=== PATIENT | female | born 1950 | race Caucasian/White ===

== ENCOUNTER → 2023-09-23 10:58 | Outpatient (REF) | payer OTHER, SELFPAY | LOC: WDC 10:58 | PROVIDERS: ATTENDING PHYSICIAN Obstetrics & Gynecology Gynecology; FAMILY PHYSICIAN Internal Medicine | DX: Z12.31 Encounter for screening mammogram for malignant neoplasm of breast (principal); Z85.3 Personal history of malignant neoplasm of breast; Z90.12 Acquired absence of left breast and nipple | CPT/HCPCS: 77063; 77067 ==

== ENCOUNTER → 2024-03-29 09:52 | Outpatient (REF) | payer OTHER, SELFPAY | LOC: RAD 09:52 | PROVIDERS: ATTENDING PHYSICIAN Family Medicine | DX: E55.9 Vitamin D deficiency, unspecified (principal); Z78.0 Asymptomatic menopausal state | CPT/HCPCS: 77080 ==

== ENCOUNTER → 2024-09-25 12:07 | Outpatient (REF) | payer OTHER, SELFPAY | LOC: WDC 12:07 | PROVIDERS: ATTENDING PHYSICIAN Obstetrics & Gynecology Gynecology; FAMILY PHYSICIAN Family Medicine | DX: Z12.31 Encounter for screening mammogram for malignant neoplasm of breast (principal) | CPT/HCPCS: 77063; 77067 ==

== ENCOUNTER → 2025-03-28 09:08 | Outpatient (REF) | payer OTHER, SELFPAY | LOC: RAD 09:08 | PROVIDERS: ATTENDING PHYSICIAN Specialist; FAMILY PHYSICIAN Family Medicine | DX: Z96.652 Presence of left artificial knee joint (principal); Z96.651 Presence of right artificial knee joint | CPT/HCPCS: 78315; A9503 ==

== ENCOUNTER 2025-05-13 10:45 | Inpatient (IN) | payer OTHER, SELFPAY ==
[2025-04-23 11:43] LABS: Hematocrit 35.3 % (37.0-47.0); Hemoglobin 11.8 g/dL (12.0-16.0); Mean Corp Hgb Conc. 33.4 g/dL (33.0-37.0); Mean Corpuscular Volume 93.9 fL (81.0-99.0); Platelet Count 234 10^3/uL (130-400); Red Cell Dist. Width 13.2 % (11.5-14.5)
[2025-04-23 12:14] LABS: ALT (SGPT) 22 U/L (0-35); AST (SGOT) 29 U/L (14-36); Albumin 4.3 g/dl (3.5-5.0); Alkaline Phosphatase 64 U/L (38-126); Blood Urea Nitrogen 31 mg/dl (7-17); Calcium 9.5 mg/dl (8.4-10.2); Carbon Dioxide 29 mmol/L (22-30); Chloride 103 mmol/L (98-107); Glucose 124 mg/dl (70-99); Potassium 4.2 mmol/L (3.5-5.1); Sodium 135 mmol/L (135-145); Total Protein 6.7 g/dl (6.3-8.2); eGFR 47.80
[2025-04-23 12:35] LABS: Glycohemoglobin (HgbA1c) 5.7 % (4.0-5.9)
[2025-04-23 14:09] VITALS: BMI 40.3
--- NOTE | 2025-04-29 09:21 | CM ---
Demographics: confirmed
Living situation: lives with
Support Person Post Operatively:
History of
VN: [facility], not currently on service
SNF: no
Outpatient: [facility], appointment scheduled for 05/15
Has patient purchased required equipment: walker, cane, raised toilet seat
PCP: confirmed
Pharmacy: [facility]
Post Operative Discharge Plan: Home with , plan for outpatient PT.
[2025-05-07 15:41] VITALS: BMI 40.3
[2025-05-13] VITALS (17 sets, daily range): BP systolic 120–155; BP diastolic 63–140
[2025-05-13] MEDS: CELEBREX 200 MG PO (11:29)
[2025-05-13] MEDS: TYLENOL 650 MG PO ×2 (11:29→21:00)
[2025-05-13 11:42] LABS: Glucose - Point of Care 117 mg/dl (70-99)
[2025-05-13] MEDS: NORMOSOL-R/PLASMALYTE-A 1000 IV ×2 (11:45→21:00)
[2025-05-13 14:12] LABS: Glucose - Point of Care 104 mg/dl (70-99)
--- NOTE | 2025-05-13 15:20 | W.PN.ORTHO ---
Today's Communication / Plan
-
d/c when stable
Assessment
.
Assessment:
Pain control-[place]
Plan
.
Surgery / Date: R TKA Revision Dr Sarah 05/13/25
DVT Prophylaxis: Aspirin
Activity:
Out of bed.
PT/OT
Discharge Plan: Home w/ Outpatient PT
Vital Signs and Labs
.
Vital Signs and Labs:
Lab Results
04/23/25 11:02
04/23/25 11:02
Temp Pulse Resp BP Pulse Ox
98.2 F 74 14 134/76 97
05/13/25 11:22 05/13/25 11:22 05/13/25 11:22 05/13/25 11:22 05/13/25 11:22
--- NOTE | 2025-05-13 15:26 | W.DS.TRANS ---
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
-
Discharge Instructions:
Sleep Apnea Risk Intermediate
Discharge Diagnosis/Procedures Mechanical failure of R TKA s/p Revision of R
TKA w/ Dr Sarah 05/13/25
Diet Diabetic, Carb Controlled
Additional Diets Adequate hydration, minimize opioids, and wear
TEDs stockings to prevent low blood pressure/
dizziness.
Activity As tolerated,With Walker
Driving Restrictions Not until seen by your Dr
Bathing Restrictions OK to Shower
Other Services PT
Wound Care Dressing to be removed 1 week post-surgery.
Sarita to be removed at 2 week follow-up with
surgeon's office.
Instructions:
Stand-Alone Forms: Total Hip/Knee Replacement D/C
Changes to Home Medications: Yes
Discharge Medications:
DC Medications w/original date entered in [facility]
hydroxychloroquine 200 mg tablet 200 mg PO DAILY 12/16/14
metformin 500 mg tablet 500 mg PO DAILY 12/18/19
atorvastatin 40 mg tablet 40 mg PO DAILY 04/19/25
cholecalciferol (vitamin D3) 125 mcg (5,000 unit) tablet (Vitamin D3) 125 mcg PO DAILY 04/19/25
levothyroxine 75 mcg tablet 75 mcg PO DAILY 04/19/25
lisinopril 30 mg tablet 40 mg PO DAILY 04/19/25
mupirocin 2 % topical ointment 1 applic intranasal BID #1 tube 04/23/25
cefadroxil 500 mg capsule 500 mg PO DAILY #7 caps 05/02/25
diazepam 5 mg tablet (Valium) 5 mg PO BID PRN muscle spasms/sleep #10 tabs 05/02/25
famotidine 20 mg tablet (Pepcid) 20 mg PO HS #30 tabs 05/02/25
hydrocodone 5 mg-acetaminophen 325 mg tablet 1 - 2 tab PO Q6H PRN moderate-severe pain #30 tabs 05/02/25
ondansetron HCl 4 mg tablet 4 mg PO Q6H PRN nausea and vomiting #30 tabs 05/02/25
Saccharomyces boulardii 250 mg capsule (Florastor) 250 mg PO BID #1 cap 05/13/25
aspirin 325 mg tablet 325 mg PO DAILY blood clot prevention #1 tab 05/13/25
docusate sodium 100 mg capsule (Colace) 100 mg PO BID stool softner #1 cap 05/13/25
hydralazine 10 mg tablet 30 mg (3 x 10 mg) PO BID #0 tabs 05/13/25
magnesium hydroxide 400 mg/5 mL oral suspension (Milk of Magnesia) 30 ml PO HS PRN constipation #1 mL 05/13/25
sennosides 8.6 mg tablet (Senokot) 17.2 mg (2 x 8.6 mg) PO BID laxative #2 tabs 05/13/25
Home Medication Changes
mupirocin 2 % topical ointment 1 applic intranasal BID #1 tube 04/23/25
cefadroxil 500 mg capsule 500 mg PO DAILY #7 caps 05/02/25
diazepam 5 mg tablet (Valium) 5 mg PO BID PRN muscle spasms/sleep #10 tabs 05/02/25
famotidine 20 mg tablet (Pepcid) 20 mg PO HS #30 tabs 05/02/25
hydrocodone 5 mg-acetaminophen 325 mg tablet 1 - 2 tab PO Q6H PRN moderate-severe pain #30 tabs 05/02/25
ondansetron HCl 4 mg tablet 4 mg PO Q6H PRN nausea and vomiting #30 tabs 05/02/25
Saccharomyces boulardii 250 mg capsule (Florastor) 250 mg PO BID #1 cap 05/13/25
aspirin 325 mg tablet 325 mg PO DAILY blood clot prevention #1 tab 05/13/25
docusate sodium 100 mg capsule (Colace) 100 mg PO BID stool softner #1 cap 05/13/25
hydralazine 10 mg tablet 30 mg (3 x 10 mg) PO BID #0 tabs 05/13/25
magnesium hydroxide 400 mg/5 mL oral suspension (Milk of Magnesia) 30 ml PO HS PRN constipation #1 mL 05/13/25
sennosides 8.6 mg tablet (Senokot) 17.2 mg (2 x 8.6 mg) PO BID laxative #2 tabs 05/13/25
Pending Results: No
[2025-05-13 17:02] LABS: Glucose - Point of Care 125 mg/dl (70-99)
[2025-05-13] MEDS: NORCO 5/325 1 TABLET PO (18:40)
[2025-05-13 20:22] LABS: Glucose - Point of Care 211 mg/dl (70-99)
[2025-05-13] MEDS: TYLENOL PO ×2 (21:00→22:29)
[2025-05-13] MEDS: BACTROBAN 2% OINTMENT 1 APPLIC NASAL (21:00)
[2025-05-13] MEDS: SENOKOT 17.2 MG PO (21:00)
[2025-05-13] MEDS: DECADRON 4 MG IV (21:00)
[2025-05-13] MEDS: COLACE 100 MG PO (21:00)
[2025-05-13] MEDS: ASPIRIN 325 MG PO (21:00)
[2025-05-13] MEDS: SYNTHROID PO (21:00)
--- NOTE | 2025-05-13 21:15 | PTCARENOTE ---
Patient is a 74-y/o F arrived from PACU at 20:49 post-op RTKA Revision after mechanical failure of her prior right total
knee arthroplasty. 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 Surjit Sarah, HTN, HLD, First-degree AV block. Chronic
lymphedema of bilateral lower extremities, Chronic kidney disease stage 3, [id number] diabetes, A1c 5.7, Diverticulosis with previous diverticulitis, Fatty liver disease, Irritable bowel syndrome with constipation, Migraines. Ambulatory
dysfunction and balance difficulties, Nocturnal leg cramps. Hypothyroidism, Hyperparathyroidism of renal origin, Inflammatory arthropathy, on Hydroxychloroquine. Anemia, likely of chronic disease. Left sided breast cancer, 2004, status post left
lumpectomy and subsequent left mastectomy, chemotherapy, and radiation. Morbid obesity, BMI 40.3. Pt is AOx3, pain assessed, call light in reach, care on-going
[2025-05-13] MEDS: PEPCID 20 MG PO (21:25)
[2025-05-13] MEDS: VALIUM 5 MG PO (21:25)
[2025-05-13] MEDS: LIPITOR PO (22:15)
[2025-05-13] MEDS: ANCEF 5 IV (22:25)
[2025-05-14] MEDS: TYLENOL 650 MG PO ×3 (00:20→07:43)
[2025-05-14 03:00] VITALS: BP 127/72
[2025-05-14] MEDS: SYNTHROID 75 MCG PO (05:00)
[2025-05-14] MEDS: ANCEF 5 IV (05:00)
[2025-05-14 07:03] LABS: Glucose - Point of Care 165 mg/dl (70-99)
[2025-05-14 07:19] VITALS: BMI 38.8
[2025-05-14] MEDS: SENOKOT 17.2 MG PO (07:43)
[2025-05-14] MEDS: ASPIRIN 325 MG PO (07:43)
[2025-05-14] MEDS: DECADRON 4 MG IV (07:44)
[2025-05-14] MEDS: COLACE 100 MG PO (07:44)
[2025-05-14] MEDS: BACTROBAN 2% OINTMENT 1 APPLIC NASAL (07:44)
[2025-05-14] MEDS: PLAQUENIL 200 MG PO (07:47)
[2025-05-14] MEDS: LIPITOR 40 MG PO (07:48)
[2025-05-14 08:01] VITALS: BP 141/78
[2025-05-14] MEDS: NORCO 5/325 1 TABLET PO (09:48)
--- NOTE | 2025-05-14 10:04 | CM ---
Chart reviewed and plan is to home with spouse and outpatient physical therapy that has been scheduled at [facility], starting 05/15 at [facility].
Plan; Home today with outpatient PT/OT at [facility].
--- NOTE | 2025-05-14 10:15 | W.PN.ORTHO ---
Today's Communication / Plan
-
d/c
Assessment
.
Distal Motor Intact: Yes
Dressing:
Clean, dry and intact.
Assessment:
Pain control-[place]
Chronic lymphedema-legs look good-minimal swelling-continue compression and elevation-follows w/ lymphedema clinic which is scheduled w/ PT
NIDDM-Metformin increased due to surgery and steroid-sugars well controlled-Cefadroxil OP Rx ppx due to obesity and DM
Plan
.
Surgery / Date: R TKA Revision Dr Sarah 05/13/25
DVT Prophylaxis: Aspirin
Activity:
Out of bed.
PT/OT
Discharge Plan: Home w/ Outpatient PT
Subjective
.
.:
Patient resting comfortably.
Vital Signs and Labs
.
Vital Signs and Labs:
Lab Results
04/23/25 11:02
04/23/25 11:02
Temp Pulse Resp BP Pulse Ox
98.0 F 71 17 141/78 96
05/14/25 08:01 05/14/25 08:01 05/14/25 08:01 05/14/25 08:01 05/14/25 08:01
Non-invasive Hgb result: 11.1
Physical Exam
-
HEENT: No pallor, cyanosis, or jaundice. Throat clear.
NECK: Supple. No JVD.
RESPIRATORY: Lungs clear to auscultation.
CVS: S1, S2 normal. RRR.� No murmur, rub or gallop.
ABDOMEN: Soft, non-tender. No distension. BS+/normal.
EXTREMITIES: strength equal, no calf pain with palpation
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 No focal deficits. 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
[2025-05-14 11:12] LABS: Glucose - Point of Care 146 mg/dl (70-99)
[2025-05-14] MEDS: TYLENOL PO (11:19)
[2025-05-14 11:36] VITALS: BP 127/78
== END 2025-05-14 14:53 | disposition home or self-care (01) | DRG 467 ==
LOC: 2 SOUTH 10:45
PROVIDERS: ADMITTING PHYSICIAN Specialist; FAMILY PHYSICIAN Family Medicine
PROC: 0SRC0J9 Replacement of Right Knee Joint with Synthetic Substitute, Cemented, Open Approach (ICD-10-PCS; 2025-05-13)
PROC: 0SPC0JZ Removal of Synthetic Substitute from Right Knee Joint, Open Approach (ICD-10-PCS; 2025-05-13)
DX: T84.092A Other mechanical complication of internal right knee prosthesis, initial encounter (principal); K57.32 Diverticulitis of large intestine without perforation or abscess without bleeding; Z68.41 Body mass index [BMI] 40.0-44.9, adult; N25.81 Secondary hyperparathyroidism of renal origin; Y79.2 Prosthetic and other implants, materials and accessory orthopedic devices associated with adverse incidents; E66.01 Morbid (severe) obesity due to excess calories; Z96.652 Presence of left artificial knee joint; E78.5 Hyperlipidemia, unspecified; N18.30 Chronic kidney disease, stage 3 unspecified; E11.22 Type 2 diabetes mellitus with diabetic chronic kidney disease; I12.9 Hypertensive chronic kidney disease with stage 1 through stage 4 chronic kidney disease, or unspecified chronic kidney disease; I44.0 Atrioventricular block, first degree; I89.0 Lymphedema, not elsewhere classified; K76.0 Fatty (change of) liver, not elsewhere classified; K58.1 Irritable bowel syndrome with constipation; G43.909 Migraine, unspecified, not intractable, without status migrainosus; E03.9 Hypothyroidism, unspecified; D63.1 Anemia in chronic kidney disease; Z90.12 Acquired absence of left breast and nipple; Z85.3 Personal history of malignant neoplasm of breast; Z79.84 Long term (current) use of oral hypoglycemic drugs; Z90.710 Acquired absence of both cervix and uterus
CPT/HCPCS: 36415; 73560; 80053; 82962; 83036; 85027; 86850; 86900; 86901; 87070; 93005; 97110; 97116; 97162; 97166; 97535

== ENCOUNTER 2025-06-12 13:43 | Outpatient (RCR) | payer OTHER, SELFPAY | END 2025-06-12 23:59 | disposition home or self-care (01) | LOC: RPT 13:43 | PROVIDERS: ATTENDING PHYSICIAN Specialist; FAMILY PHYSICIAN Family Medicine | DX: Z47.1 Aftercare following joint replacement surgery (principal); R26.89 Other abnormalities of gait and mobility; Z73.6 Limitation of activities due to disability; M62.81 Muscle weakness (generalized); M25.561 Pain in right knee; M25.551 Pain in right hip; Z96.651 Presence of right artificial knee joint | CPT/HCPCS: 97110; 97112; 97140; 97162; 97530 ==